=== PATIENT | male | born 1995 | race Caucasian/White ===

== ENCOUNTER 2020-04-30 19:26 | Inpatient (IN) | payer OTHER ==
[~2020-04-30] VITALS: Ht 190.5 cm; Wt 125.6 kg
[2020-04-30 21:08] LABS: COVID AG,FIA SOURCE NASOPHARYNGEAL
[2020-04-30 21:23] LABS: ANION GAP 11 mmol/L (8-16); BASOPHILS % (AUTO) 0.5 % (0.0-2.0); CALCIUM, TOTAL 9.3 mg/dL (8.8-10.5); CARBON DIOXIDE 25 mmol/L (22-29); CHLORIDE 105 mmol/L (98-107); CREATININE 1.51 mg/dL (0.60-1.30); EOSINOPHILS % (AUTO) 0.6 % (1.0-6.0); GLOMERULAR FILTR. RATE CALC 56 mL/min (>60); GLUCOSE,RANDOM 78 mg/dL (70-110); HEMATOCRIT 47.6 % (41-53); HEMOGLOBIN 16.1 g/dL (13.5-17.5); LYMPHOCYTES # (AUTO) 2.1 K/uL (1.0-4.8); LYMPHOCYTES % (AUTO) 24.1 % (22.0-44.0); MEAN CORPUSCULAR HEMOGLOBIN 29.6 pg (26.0-34.0); MEAN CORPUSCULAR HGB CONC 33.8 G/dL (31.0-37.0); MEAN CORPUSCULAR VOLUME 88 fL (80-100); MONOCYTES # (AUTO) 0.5 K/uL (0.1-1.0); MONOCYTES % (AUTO) 5.7 % (2.0-9.0); NEUTROPHILS # (AUTO) 5.9 K/uL (1.8-7.7); NEUTROPHILS % (AUTO) 69.1 % (40.0-70.0); PLATELET COUNT (AUTO) 292 K/uL (150-450); POTASSIUM 3.8 mmol/L (3.5-5.1); RED BLOOD CELL COUNT(AUTO) 5.43 MIL/uL (4.50-5.90); RED CELL DISTRIBUTION WIDTH 13.3 % (11.5-14.5); SODIUM SERUM 141 mmol/L (136-145); UREA NITROGEN, BLOOD 25 mg/dL (7-18)
[2020-04-30 21:29] LABS: ALANINE AMINOTRANSFERASE 26 U/L (12-78); ALBUMIN 4.1 g/dL (3.4-5.0); ALKALINE PHOSPHATASE 69 U/L (46-116); ASPARTATE AMINOTRANSFERASE 15 U/L (15-37); BILIRUBIN,TOTAL 1.1 mg/dL (0.1-1.0); TOTAL PROTEIN, SERUM 8.1 g/dL (6.4-8.2)
[2020-04-30] MEDS ORDERED: ACETAMINOPHEN 325 MG TABLET PO PRN (21:30)
[2020-04-30] MEDS ORDERED: ONDANSETRON HCL 4 MG/2 ML VIAL IVP PRN (21:30)
[2020-04-30] MEDS ORDERED: SODIUM CHLORIDE 0.9% 1,000 ML IV ONE (21:45)
[2020-04-30 22:52] VITALS: BP 123/54
[2020-04-30] MEDS: HEPARIN SODIUM,PORCINE 5,000 UNITS/ML VIAL SQ SCH (23:09)
[2020-04-30] MEDS: DEXTROSE 5%-0.45% SODIUM CHL 1,000 ML IV SCH (23:10)
[2020-05-01] MEDS ORDERED: INFLUENZA VIRUS VACCINE QVS 2020-21 (6MO+)/PF 60 MCG/0.5 ML SYRINGE IM ONE (04:30)
[2020-05-01 05:01] VITALS: BP 116/69
[2020-05-01 07:42] VITALS: BP 114/60
[2020-05-01] MEDS: HEPARIN SODIUM,PORCINE 5,000 UNITS/ML VIAL SQ SCH ×3 (08:27→23:33)
[2020-05-01] MEDS: DEXTROSE 5%-0.45% SODIUM CHL 1,000 ML IV SCH ×2 (08:33→17:58)
[2020-05-01 13:50] LABS: AMPHET/METH SCREEN,URINE NEGATIVE (NEGATIVE); BARBITURATE SCREEN, URINE NEGATIVE (NEGATIVE); BENZODIAZEPINES SCREEN,URINE NEGATIVE (NEGATIVE); CANNABINOID SCREEN,URINE POSITIVE (NEGATIVE); COCAINE SCREEN,URINE NEGATIVE (NEGATIVE); METHADONE SCREEN, URINE NEGATIVE (NEGATIVE); OPIATE SCREEN,URINE NEGATIVE (NEGATIVE)
[2020-05-01 13:51] LABS: PHENCYCLIDINE SCREEN,URINE NEGATIVE (NEGATIVE)
[2020-05-01 20:48] VITALS: BP 119/58
[2020-05-02] MEDS: DEXTROSE 5%-0.45% SODIUM CHL 1,000 ML IV SCH ×2 (05:41→15:14)
[2020-05-02] MEDS: HEPARIN SODIUM,PORCINE 5,000 UNITS/ML VIAL SQ SCH ×2 (07:52→15:14)
[2020-05-02 08:37] VITALS: BP 105/46
[2020-05-02 20:30] VITALS: BP 121/64
[2020-05-03] MEDS: DEXTROSE 5%-0.45% SODIUM CHL 1,000 ML IV SCH ×3 (03:01→23:43)
[2020-05-03 04:30] VITALS: BP 111/56
[2020-05-03] MEDS: HEPARIN SODIUM,PORCINE 5,000 UNITS/ML VIAL SQ SCH ×4 (07:46→23:43)
[2020-05-03 08:13] VITALS: BP 104/57
[2020-05-03 11:05] LABS: BASOPHILS % (AUTO) 0.9 % (0.0-2.0); EOSINOPHILS % (AUTO) 1.1 % (1.0-6.0); HEMATOCRIT 41.2 % (41-53); HEMOGLOBIN 14.1 g/dL (13.5-17.5); LYMPHOCYTES # (AUTO) 1.7 K/uL (1.0-4.8); LYMPHOCYTES % (AUTO) 33.5 % (22.0-44.0); MEAN CORPUSCULAR HEMOGLOBIN 29.7 pg (26.0-34.0); MEAN CORPUSCULAR HGB CONC 34.2 G/dL (31.0-37.0); MEAN CORPUSCULAR VOLUME 87 fL (80-100); MONOCYTES # (AUTO) 0.4 K/uL (0.1-1.0); MONOCYTES % (AUTO) 7.7 % (2.0-9.0); NEUTROPHILS # (AUTO) 2.9 K/uL (1.8-7.7); NEUTROPHILS % (AUTO) 56.8 % (40.0-70.0); PLATELET COUNT (AUTO) 227 K/uL (150-450); RED BLOOD CELL COUNT(AUTO) 4.73 MIL/uL (4.50-5.90)
[2020-05-03 11:14] LABS: ANION GAP 6 mmol/L (8-16); CALCIUM, TOTAL 8.4 mg/dL (8.8-10.5); CARBON DIOXIDE 30 mmol/L (22-29); CHLORIDE 104 mmol/L (98-107); CREATININE 1.35 mg/dL (0.60-1.30); GLOMERULAR FILTR. RATE CALC > 60 mL/min (>60); GLUCOSE,RANDOM 89 mg/dL (70-110); POTASSIUM 3.7 mmol/L (3.5-5.1); SODIUM SERUM 140 mmol/L (136-145); UREA NITROGEN, BLOOD 11 mg/dL (7-18)
[2020-05-03 11:19] LABS: ALANINE AMINOTRANSFERASE 25 U/L (12-78); ALBUMIN 3.4 g/dL (3.4-5.0); ALKALINE PHOSPHATASE 56 U/L (46-116); ASPARTATE AMINOTRANSFERASE 17 U/L (15-37); TOTAL PROTEIN, SERUM 6.8 g/dL (6.4-8.2)
[2020-05-03 21:30] VITALS: BP 106/51
[2020-05-04 03:45] VITALS: BP 105/55
[2020-05-04 06:44] LABS: BASOPHILS % (AUTO) 0.7 % (0.0-2.0); EOSINOPHILS % (AUTO) 1.5 % (1.0-6.0); HEMATOCRIT 39.9 % (41-53); HEMOGLOBIN 13.8 g/dL (13.5-17.5); LYMPHOCYTES # (AUTO) 2.5 K/uL (1.0-4.8); LYMPHOCYTES % (AUTO) 37.8 % (22.0-44.0); MEAN CORPUSCULAR HEMOGLOBIN 29.8 pg (26.0-34.0); MEAN CORPUSCULAR HGB CONC 34.5 G/dL (31.0-37.0); MEAN CORPUSCULAR VOLUME 87 fL (80-100); MONOCYTES # (AUTO) 0.6 K/uL (0.1-1.0); MONOCYTES % (AUTO) 8.8 % (2.0-9.0); NEUTROPHILS # (AUTO) 3.4 K/uL (1.8-7.7); NEUTROPHILS % (AUTO) 51.2 % (40.0-70.0); PLATELET COUNT (AUTO) 230 K/uL (150-450); RED BLOOD CELL COUNT(AUTO) 4.61 MIL/uL (4.50-5.90); RED CELL DISTRIBUTION WIDTH 13.2 % (11.5-14.5)
[2020-05-04 07:18] LABS: ALANINE AMINOTRANSFERASE 31 U/L (12-78); ALBUMIN 3.3 g/dL (3.4-5.0); ALKALINE PHOSPHATASE 55 U/L (46-116); ANION GAP 7 mmol/L (8-16); ASPARTATE AMINOTRANSFERASE 17 U/L (15-37); BILIRUBIN,TOTAL 0.3 mg/dL (0.1-1.0); CALCIUM, TOTAL 8.9 mg/dL (8.8-10.5); CARBON DIOXIDE 26 mmol/L (22-29); CHLORIDE 106 mmol/L (98-107); CREATININE 1.21 mg/dL (0.60-1.30); GLOMERULAR FILTR. RATE CALC > 60 mL/min (>60); GLUCOSE,RANDOM 88 mg/dL (70-110); PHOSPHORUS 4.3 mg/dL (2.5-4.9); POTASSIUM 3.2 mmol/L (3.5-5.1); SODIUM SERUM 139 mmol/L (136-145); TOTAL PROTEIN, SERUM 6.4 g/dL (6.4-8.2); UREA NITROGEN, BLOOD 15 mg/dL (7-18)
[2020-05-04] MEDS: HEPARIN SODIUM,PORCINE 5,000 UNITS/ML VIAL SQ SCH ×3 (08:25→23:21)
[2020-05-04] MEDS: THIAMINE 100 MG TABLET PO SCH (08:25)
[2020-05-04] MEDS: MULTIVITAMINS WITH MINERALS, THERAPEUTIC TABLET PO SCH (08:25)
[2020-05-04 09:09] VITALS: BP 115/55
[2020-05-04] MEDS: DEXTROSE 5%-0.45% SODIUM CHL 1,000 ML IV SCH (14:08)
[2020-05-04 21:12] VITALS: BP 118/56
[2020-05-05] MEDS: DEXTROSE 5%-0.45% SODIUM CHL 1,000 ML IV SCH ×2 (03:54→15:33)
[2020-05-05 05:20] VITALS: BP 100/63
[2020-05-05 06:20] LABS: BASOPHILS % (AUTO) 0.5 % (0.0-2.0); EOSINOPHILS % (AUTO) 1.5 % (1.0-6.0); HEMATOCRIT 41.1 % (41-53); HEMOGLOBIN 13.8 g/dL (13.5-17.5); LYMPHOCYTES % (AUTO) 41.9 % (22.0-44.0); MEAN CORPUSCULAR HEMOGLOBIN 29.5 pg (26.0-34.0); MEAN CORPUSCULAR HGB CONC 33.5 G/dL (31.0-37.0); MEAN CORPUSCULAR VOLUME 88 fL (80-100); MONOCYTES # (AUTO) 0.6 K/uL (0.1-1.0); MONOCYTES % (AUTO) 7.9 % (2.0-9.0); NEUTROPHILS # (AUTO) 3.5 K/uL (1.8-7.7); NEUTROPHILS % (AUTO) 48.2 % (40.0-70.0); PLATELET COUNT (AUTO) 224 K/uL (150-450); RED BLOOD CELL COUNT(AUTO) 4.67 MIL/uL (4.50-5.90); RED CELL DISTRIBUTION WIDTH 13.1 % (11.5-14.5)
[2020-05-05 07:29] LABS: ALANINE AMINOTRANSFERASE 32 U/L (12-78); ALBUMIN 3.3 g/dL (3.4-5.0); ALKALINE PHOSPHATASE 51 U/L (46-116); ANION GAP 7 mmol/L (8-16); ASPARTATE AMINOTRANSFERASE 19 U/L (15-37); BILIRUBIN,TOTAL 0.4 mg/dL (0.1-1.0); CALCIUM, TOTAL 8.7 mg/dL (8.8-10.5); CARBON DIOXIDE 28 mmol/L (22-29); CHLORIDE 106 mmol/L (98-107); CREATININE 1.27 mg/dL (0.60-1.30); GLOMERULAR FILTR. RATE CALC > 60 mL/min (>60); GLUCOSE,RANDOM 90 mg/dL (70-110); PHOSPHORUS 3.7 mg/dL (2.5-4.9); POTASSIUM 3.8 mmol/L (3.5-5.1); SODIUM SERUM 141 mmol/L (136-145); TOTAL PROTEIN, SERUM 6.4 g/dL (6.4-8.2); UREA NITROGEN, BLOOD 11 mg/dL (7-18)
[2020-05-05 08:35] VITALS: BP 107/57
[2020-05-05] MEDS: THIAMINE 100 MG TABLET PO SCH (08:43)
[2020-05-05] MEDS: HEPARIN SODIUM,PORCINE 5,000 UNITS/ML VIAL SQ SCH ×2 (08:43→15:33)
[2020-05-05] MEDS: MULTIVITAMINS WITH MINERALS, THERAPEUTIC TABLET PO SCH (08:43)
[2020-05-05 20:43] VITALS: BP 110/65
[2020-05-06] MEDS: HEPARIN SODIUM,PORCINE 5,000 UNITS/ML VIAL SQ SCH ×4 (00:34→23:54)
[2020-05-06] MEDS: DEXTROSE 5%-0.45% SODIUM CHL 1,000 ML IV SCH ×2 (03:03→19:44)
[2020-05-06 04:25] VITALS: BP 119/56
[2020-05-06 06:47] LABS: BASOPHILS % (AUTO) 0.6 % (0.0-2.0); EOSINOPHILS % (AUTO) 1.9 % (1.0-6.0); LYMPHOCYTES # (AUTO) 3.2 K/uL (1.0-4.8); LYMPHOCYTES % (AUTO) 43.6 % (22.0-44.0); MEAN CORPUSCULAR HGB CONC 34.2 G/dL (31.0-37.0); MEAN CORPUSCULAR VOLUME 88 fL (80-100); MONOCYTES # (AUTO) 0.5 K/uL (0.1-1.0); MONOCYTES % (AUTO) 7.1 % (2.0-9.0); NEUTROPHILS # (AUTO) 3.4 K/uL (1.8-7.7); NEUTROPHILS % (AUTO) 46.8 % (40.0-70.0); PLATELET COUNT (AUTO) 228 K/uL (150-450); RED BLOOD CELL COUNT(AUTO) 4.68 MIL/uL (4.50-5.90); RED CELL DISTRIBUTION WIDTH 13.3 % (11.5-14.5)
[2020-05-06 07:24] LABS: ALANINE AMINOTRANSFERASE 40 U/L (12-78); ALBUMIN 3.3 g/dL (3.4-5.0); ALKALINE PHOSPHATASE 56 U/L (46-116); ANION GAP 5 mmol/L (8-16); ASPARTATE AMINOTRANSFERASE 18 U/L (15-37); BILIRUBIN,TOTAL 0.3 mg/dL (0.1-1.0); CALCIUM, TOTAL 8.6 mg/dL (8.8-10.5); CARBON DIOXIDE 29 mmol/L (22-29); CHLORIDE 105 mmol/L (98-107); CREATININE 1.28 mg/dL (0.60-1.30); GLOMERULAR FILTR. RATE CALC > 60 mL/min (>60); GLUCOSE,RANDOM 85 mg/dL (70-110); POTASSIUM 3.7 mmol/L (3.5-5.1); SODIUM SERUM 139 mmol/L (136-145); TOTAL PROTEIN, SERUM 6.7 g/dL (6.4-8.2); UREA NITROGEN, BLOOD 11 mg/dL (7-18)
[2020-05-06 08:51] VITALS: BP 130/52
[2020-05-06] MEDS: THIAMINE 100 MG TABLET PO SCH (09:27)
[2020-05-06] MEDS: MULTIVITAMINS WITH MINERALS, THERAPEUTIC TABLET PO SCH (09:27)
[2020-05-06 20:48] VITALS: BP 121/50
[2020-05-06] MEDS ORDERED: ZOLPIDEM TARTRATE 5 MG TABLET PO ONE (23:30)
[2020-05-07 04:33] VITALS: BP 103/51
[2020-05-07 06:58] LABS: BASOPHILS % (AUTO) 0.5 % (0.0-2.0); EOSINOPHILS % (AUTO) 1.8 % (1.0-6.0); HEMATOCRIT 41.4 % (41-53); HEMOGLOBIN 14.2 g/dL (13.5-17.5); LYMPHOCYTES # (AUTO) 2.7 K/uL (1.0-4.8); LYMPHOCYTES % (AUTO) 37.5 % (22.0-44.0); MEAN CORPUSCULAR HEMOGLOBIN 30.1 pg (26.0-34.0); MEAN CORPUSCULAR HGB CONC 34.2 G/dL (31.0-37.0); MEAN CORPUSCULAR VOLUME 88 fL (80-100); MONOCYTES # (AUTO) 0.6 K/uL (0.1-1.0); MONOCYTES % (AUTO) 7.7 % (2.0-9.0); NEUTROPHILS # (AUTO) 3.8 K/uL (1.8-7.7); NEUTROPHILS % (AUTO) 52.5 % (40.0-70.0); PLATELET COUNT (AUTO) 234 K/uL (150-450)
[2020-05-07 07:13] LABS: ALANINE AMINOTRANSFERASE 45 U/L (12-78); ALBUMIN 3.5 g/dL (3.4-5.0); ALKALINE PHOSPHATASE 58 U/L (46-116); ANION GAP 7 mmol/L (8-16); ASPARTATE AMINOTRANSFERASE 18 U/L (15-37); BILIRUBIN,TOTAL 0.3 mg/dL (0.1-1.0); CALCIUM, TOTAL 9.1 mg/dL (8.8-10.5); CARBON DIOXIDE 28 mmol/L (22-29); CHLORIDE 106 mmol/L (98-107); CREATININE 1.23 mg/dL (0.60-1.30); GLOMERULAR FILTR. RATE CALC > 60 mL/min (>60); GLUCOSE,RANDOM 96 mg/dL (70-110); POTASSIUM 4.1 mmol/L (3.5-5.1); SODIUM SERUM 141 mmol/L (136-145); TOTAL PROTEIN, SERUM 6.7 g/dL (6.4-8.2); UREA NITROGEN, BLOOD 12 mg/dL (7-18)
[2020-05-07] MEDS: HEPARIN SODIUM,PORCINE 5,000 UNITS/ML VIAL SQ SCH ×2 (08:00→17:27)
[2020-05-07] MEDS: DEXTROSE 5%-0.45% SODIUM CHL 1,000 ML IV SCH (08:03)
[2020-05-07 08:56] VITALS: BP 118/70
[2020-05-07] MEDS: MULTIVITAMINS WITH MINERALS, THERAPEUTIC TABLET PO SCH (08:58)
[2020-05-07] MEDS: THIAMINE 100 MG TABLET PO SCH (08:58)
[2020-05-07 21:18] VITALS: BP 117/53
[2020-05-08] MEDS: DEXTROSE 5%-0.45% SODIUM CHL 1,000 ML IV SCH ×2 (01:18→08:15)
[2020-05-08] MEDS: HEPARIN SODIUM,PORCINE 5,000 UNITS/ML VIAL SQ SCH ×4 (01:18→23:10)
[2020-05-08 04:40] VITALS: BP 112/51
[2020-05-08 07:06] LABS: BASOPHILS % (AUTO) 0.4 % (0.0-2.0); EOSINOPHILS % (AUTO) 2.7 % (1.0-6.0); HEMATOCRIT 41.6 % (41-53); HEMOGLOBIN 14.4 g/dL (13.5-17.5); LYMPHOCYTES % (AUTO) 38.6 % (22.0-44.0); MEAN CORPUSCULAR HEMOGLOBIN 30.3 pg (26.0-34.0); MEAN CORPUSCULAR HGB CONC 34.6 G/dL (31.0-37.0); MEAN CORPUSCULAR VOLUME 88 fL (80-100); MONOCYTES # (AUTO) 0.5 K/uL (0.1-1.0); NEUTROPHILS # (AUTO) 3.9 K/uL (1.8-7.7); NEUTROPHILS % (AUTO) 51.3 % (40.0-70.0); PLATELET COUNT (AUTO) 226 K/uL (150-450); RED BLOOD CELL COUNT(AUTO) 4.75 MIL/uL (4.50-5.90); RED CELL DISTRIBUTION WIDTH 13.1 % (11.5-14.5)
[2020-05-08 07:35] LABS: ALANINE AMINOTRANSFERASE 54 U/L (12-78); ALBUMIN 3.4 g/dL (3.4-5.0); ALKALINE PHOSPHATASE 57 U/L (46-116); ANION GAP 7 mmol/L (8-16); ASPARTATE AMINOTRANSFERASE 23 U/L (15-37); BILIRUBIN,TOTAL 0.4 mg/dL (0.1-1.0); CALCIUM, TOTAL 8.8 mg/dL (8.8-10.5); CARBON DIOXIDE 29 mmol/L (22-29); CHLORIDE 105 mmol/L (98-107); CREATININE 1.26 mg/dL (0.60-1.30); GLOMERULAR FILTR. RATE CALC > 60 mL/min (>60); GLUCOSE,RANDOM 85 mg/dL (70-110); SODIUM SERUM 141 mmol/L (136-145); TOTAL PROTEIN, SERUM 6.8 g/dL (6.4-8.2); UREA NITROGEN, BLOOD 14 mg/dL (7-18)
[2020-05-08] MEDS: MULTIVITAMINS WITH MINERALS, THERAPEUTIC TABLET PO SCH ×2 (08:14→08:20)
[2020-05-08] MEDS: THIAMINE 100 MG TABLET PO SCH ×2 (08:14→08:20)
[2020-05-08 08:30] VITALS: BP 98/47
[2020-05-08 09:51] VITALS: BP 118/67
[2020-05-08 20:26] VITALS: BP 132/70
[2020-05-09 05:11] VITALS: BP 128/67
[2020-05-09 06:49] LABS: BASOPHILS % (AUTO) 0.7 % (0.0-2.0); EOSINOPHILS % (AUTO) 2.4 % (1.0-6.0); HEMATOCRIT 41.4 % (41-53); HEMOGLOBIN 14.6 g/dL (13.5-17.5); LYMPHOCYTES # (AUTO) 3.2 K/uL (1.0-4.8); LYMPHOCYTES % (AUTO) 37.9 % (22.0-44.0); MEAN CORPUSCULAR HEMOGLOBIN 30.5 pg (26.0-34.0); MEAN CORPUSCULAR HGB CONC 35.3 G/dL (31.0-37.0); MEAN CORPUSCULAR VOLUME 87 fL (80-100); MONOCYTES # (AUTO) 0.7 K/uL (0.1-1.0); MONOCYTES % (AUTO) 8.2 % (2.0-9.0); NEUTROPHILS # (AUTO) 4.3 K/uL (1.8-7.7); NEUTROPHILS % (AUTO) 50.8 % (40.0-70.0); PLATELET COUNT (AUTO) 227 K/uL (150-450); RED BLOOD CELL COUNT(AUTO) 4.79 MIL/uL (4.50-5.90)
[2020-05-09 07:23] LABS: ALANINE AMINOTRANSFERASE 72 U/L (12-78); ALBUMIN 3.6 g/dL (3.4-5.0); ALKALINE PHOSPHATASE 61 U/L (46-116); ANION GAP 5 mmol/L (8-16); ASPARTATE AMINOTRANSFERASE 26 U/L (15-37); BILIRUBIN,TOTAL 0.4 mg/dL (0.1-1.0); CALCIUM, TOTAL 9.4 mg/dL (8.8-10.5); CARBON DIOXIDE 31 mmol/L (22-29); CHLORIDE 104 mmol/L (98-107); CREATININE 1.39 mg/dL (0.60-1.30); GLOMERULAR FILTR. RATE CALC > 60 mL/min (>60); GLUCOSE,RANDOM 90 mg/dL (70-110); POTASSIUM 4.5 mmol/L (3.5-5.1); SODIUM SERUM 140 mmol/L (136-145); TOTAL PROTEIN, SERUM 7.2 g/dL (6.4-8.2); UREA NITROGEN, BLOOD 13 mg/dL (7-18)
[2020-05-09] MEDS: HEPARIN SODIUM,PORCINE 5,000 UNITS/ML VIAL SQ SCH ×2 (07:57→17:19)
[2020-05-09] MEDS: MULTIVITAMINS WITH MINERALS, THERAPEUTIC TABLET PO SCH (07:58)
[2020-05-09] MEDS: THIAMINE 100 MG TABLET PO SCH (07:58)
[2020-05-09 09:00] VITALS: BP 103/59
[2020-05-09 20:00] VITALS: BP 109/64
[2020-05-10] MEDS: HEPARIN SODIUM,PORCINE 5,000 UNITS/ML VIAL SQ SCH ×4 (00:01→23:29)
[2020-05-10 04:15] VITALS: BP 98/72
[2020-05-10 06:50] LABS: BASOPHILS % (AUTO) 0.8 % (0.0-2.0); EOSINOPHILS % (AUTO) 1.7 % (1.0-6.0); HEMATOCRIT 43.1 % (41-53); LYMPHOCYTES # (AUTO) 3.4 K/uL (1.0-4.8); LYMPHOCYTES % (AUTO) 40.4 % (22.0-44.0); MEAN CORPUSCULAR HEMOGLOBIN 30.4 pg (26.0-34.0); MEAN CORPUSCULAR HGB CONC 34.8 G/dL (31.0-37.0); MEAN CORPUSCULAR VOLUME 87 fL (80-100); MONOCYTES # (AUTO) 0.6 K/uL (0.1-1.0); MONOCYTES % (AUTO) 7.7 % (2.0-9.0); NEUTROPHILS # (AUTO) 4.1 K/uL (1.8-7.7); NEUTROPHILS % (AUTO) 49.4 % (40.0-70.0); PLATELET COUNT (AUTO) 239 K/uL (150-450); RED BLOOD CELL COUNT(AUTO) 4.93 MIL/uL (4.50-5.90); RED CELL DISTRIBUTION WIDTH 13.2 % (11.5-14.5)
[2020-05-10 07:31] LABS: ALANINE AMINOTRANSFERASE 70 U/L (12-78); ALBUMIN 3.7 g/dL (3.4-5.0); ALKALINE PHOSPHATASE 63 U/L (46-116); ANION GAP 6 mmol/L (8-16); ASPARTATE AMINOTRANSFERASE 22 U/L (15-37); BILIRUBIN,TOTAL 0.3 mg/dL (0.1-1.0); CALCIUM, TOTAL 9.2 mg/dL (8.8-10.5); CARBON DIOXIDE 29 mmol/L (22-29); CHLORIDE 103 mmol/L (98-107); CREATININE 1.31 mg/dL (0.60-1.30); GLOMERULAR FILTR. RATE CALC > 60 mL/min (>60); GLUCOSE,RANDOM 91 mg/dL (70-110); POTASSIUM 3.9 mmol/L (3.5-5.1); SODIUM SERUM 138 mmol/L (136-145); TOTAL PROTEIN, SERUM 7.2 g/dL (6.4-8.2); UREA NITROGEN, BLOOD 15 mg/dL (7-18)
[2020-05-10 08:07] VITALS: BP 103/66
[2020-05-10] MEDS: MULTIVITAMINS WITH MINERALS, THERAPEUTIC TABLET PO SCH (08:48)
[2020-05-10] MEDS: THIAMINE 100 MG TABLET PO SCH (08:48)
[2020-05-10 20:05] VITALS: BP 115/58
[2020-05-11 03:55] VITALS: BP 108/62
[2020-05-11 08:29] VITALS: BP 94/64
[2020-05-11] MEDS: MULTIVITAMINS WITH MINERALS, THERAPEUTIC TABLET PO SCH ×2 (08:34→09:00)
[2020-05-11] MEDS: THIAMINE 100 MG TABLET PO SCH ×2 (08:34→09:00)
[2020-05-11] MEDS: HEPARIN SODIUM,PORCINE 5,000 UNITS/ML VIAL SQ SCH ×2 (08:34→17:26)
[2020-05-11 20:31] VITALS: BP 104/61
[2020-05-12] MEDS: HEPARIN SODIUM,PORCINE 5,000 UNITS/ML VIAL SQ SCH ×3 (00:26→16:36)
[2020-05-12 05:00] VITALS: BP 119/57
[2020-05-12 07:44] VITALS: BP 113/59
[2020-05-12] MEDS: MULTIVITAMINS WITH MINERALS, THERAPEUTIC TABLET PO SCH (08:10)
[2020-05-12] MEDS: THIAMINE 100 MG TABLET PO SCH (08:10)
[2020-05-12 20:50] VITALS: BP 106/63
[2020-05-13] MEDS: HEPARIN SODIUM,PORCINE 5,000 UNITS/ML VIAL SQ SCH ×3 (00:19→16:24)
[2020-05-13 05:15] VITALS: BP 117/58
[2020-05-13 08:28] VITALS: BP 125/61
[2020-05-13] MEDS: THIAMINE 100 MG TABLET PO SCH (16:23)
[2020-05-13] MEDS: MULTIVITAMINS WITH MINERALS, THERAPEUTIC TABLET PO SCH (16:23)
[2020-05-13 20:29] VITALS: BP 109/59
[2020-05-14 04:36] VITALS: BP 121/57
[2020-05-14 07:23] VITALS: BP 100/57
[2020-05-14] MEDS: HEPARIN SODIUM,PORCINE 5,000 UNITS/ML VIAL SQ SCH ×4 (08:06→23:15)
[2020-05-14] MEDS: MULTIVITAMINS WITH MINERALS, THERAPEUTIC TABLET PO SCH (08:06)
[2020-05-14] MEDS: THIAMINE 100 MG TABLET PO SCH (08:06)
[2020-05-14 20:31] VITALS: BP 116/64
[2020-05-15 07:44] VITALS: BP 120/69
[2020-05-15] MEDS: HEPARIN SODIUM,PORCINE 5,000 UNITS/ML VIAL SQ SCH ×2 (07:54→17:06)
[2020-05-15] MEDS: THIAMINE 100 MG TABLET PO SCH (09:00)
[2020-05-15] MEDS: MULTIVITAMINS WITH MINERALS, THERAPEUTIC TABLET PO SCH (09:00)
[2020-05-15 20:08] VITALS: BP 118/62
[2020-05-16] MEDS: HEPARIN SODIUM,PORCINE 5,000 UNITS/ML VIAL SQ SCH ×4 (00:25→23:10)
[2020-05-16 05:00] VITALS: BP 120/76
[2020-05-16 08:00] VITALS: BP 121/57
[2020-05-16] MEDS: MULTIVITAMINS WITH MINERALS, THERAPEUTIC TABLET PO SCH (08:20)
[2020-05-16] MEDS: THIAMINE 100 MG TABLET PO SCH (08:20)
[2020-05-16 20:00] VITALS: BP 124/64
[2020-05-17 04:11] VITALS: BP 117/63
[2020-05-17] MEDS: HEPARIN SODIUM,PORCINE 5,000 UNITS/ML VIAL SQ SCH ×3 (07:59→23:26)
[2020-05-17] MEDS: THIAMINE 100 MG TABLET PO SCH (08:02)
[2020-05-17] MEDS: MULTIVITAMINS WITH MINERALS, THERAPEUTIC TABLET PO SCH (08:02)
[2020-05-17 09:03] VITALS: BP 108/62
[2020-05-17 20:10] VITALS: BP 105/56
[2020-05-18 04:19] VITALS: BP 104/57
[2020-05-18 07:33] LABS: CALCIUM, TOTAL 8.9 mg/dL (8.8-10.5); CREATININE 1.57 mg/dL (0.60-1.30); POTASSIUM 3.5 mmol/L (3.5-5.1)
[2020-05-18 07:52] VITALS: BP 111/63
[2020-05-18] MEDS: MULTIVITAMINS WITH MINERALS, THERAPEUTIC TABLET PO SCH (07:57)
[2020-05-18] MEDS: HEPARIN SODIUM,PORCINE 5,000 UNITS/ML VIAL SQ SCH ×3 (07:57→23:08)
[2020-05-18] MEDS: THIAMINE 100 MG TABLET PO SCH (07:57)
[2020-05-18 20:21] VITALS: BP 128/62
[2020-05-19 05:00] VITALS: BP 111/55
[2020-05-19] MEDS: HEPARIN SODIUM,PORCINE 5,000 UNITS/ML VIAL SQ SCH ×3 (08:00→23:28)
[2020-05-19] MEDS: MULTIVITAMINS WITH MINERALS, THERAPEUTIC TABLET PO SCH (08:31)
[2020-05-19] MEDS: THIAMINE 100 MG TABLET PO SCH (08:31)
[2020-05-19 08:45] VITALS: BP 114/57
[2020-05-19] MEDS ORDERED: SODIUM CHLORIDE 0.9% 1,000 ML IV ONE (13:00)
[2020-05-19 20:30] VITALS: BP 119/76
[2020-05-20 05:10] VITALS: BP 123/59
[2020-05-20 07:33] VITALS: BP 101/57
[2020-05-20] MEDS: THIAMINE 100 MG TABLET PO SCH (09:00)
[2020-05-20] MEDS: MULTIVITAMINS WITH MINERALS, THERAPEUTIC TABLET PO SCH (09:00)
[2020-05-20] MEDS: HEPARIN SODIUM,PORCINE 5,000 UNITS/ML VIAL SQ SCH ×2 (09:55→16:53)
[2020-05-20] MEDS ORDERED: DEXTROSE 5%-0.2% SODIUM CHL 1,000 ML IV ONE (10:30)
[2020-05-20 21:23] VITALS: BP 116/61
[2020-05-21] MEDS: HEPARIN SODIUM,PORCINE 5,000 UNITS/ML VIAL SQ SCH ×3 (00:06→15:21)
[2020-05-21 05:05] VITALS: BP 122/66
[2020-05-21 07:26] VITALS: BP 99/52
[2020-05-21] MEDS: MULTIVITAMINS WITH MINERALS, THERAPEUTIC TABLET PO SCH (08:17)
[2020-05-21] MEDS: THIAMINE 100 MG TABLET PO SCH (08:17)
[2020-05-21 20:10] VITALS: BP 123/60
== END 2020-05-21 23:45 | disposition home or self-care (01) | DRG 885 ==
LOC: EMS 19:26 → 6S 21:03
PROVIDERS: ADMIT Internal Medicine; ATTEND Internal Medicine
DX: F33.3 Major depressive disorder, recurrent, severe with psychotic symptoms (principal); R45.851 Suicidal ideations; N17.9 Acute kidney failure, unspecified; E87.1 Hypo-osmolality and hyponatremia; E46 Unspecified protein-calorie malnutrition; E86.0 Dehydration; F41.9 Anxiety disorder, unspecified; E87.6 Hypokalemia; F12.90 Cannabis use, unspecified, uncomplicated; F15.10 Other stimulant abuse, uncomplicated; Z20.822 Contact with and (suspected) exposure to COVID-19; Z68.34 Body mass index [BMI] 34.0-34.9, adult; Z28.21 Immunization not carried out because of patient refusal
CPT/HCPCS: 83735; 84100; 87426; 99285; G0480; J1644; J7030

== ENCOUNTER 2020-05-23 21:31 | Inpatient (IN) | payer OTHER ==
[~2020-05-23] VITALS: Ht 190.5 cm; Wt 131.5 kg
[2020-05-23 22:54] LABS: BASOPHILS % (AUTO) 0.4 % (0.0-2.0); EOSINOPHILS % (AUTO) 1.3 % (1.0-6.0); HEMATOCRIT 43.9 % (41-53); HEMOGLOBIN 14.9 g/dL (13.5-17.5); LYMPHOCYTES # (AUTO) 1.8 K/uL (1.0-4.8); LYMPHOCYTES % (AUTO) 25.6 % (22.0-44.0); MEAN CORPUSCULAR HEMOGLOBIN 29.7 pg (26.0-34.0); MEAN CORPUSCULAR VOLUME 87 fL (80-100); MONOCYTES # (AUTO) 0.4 K/uL (0.1-1.0); MONOCYTES % (AUTO) 5.8 % (2.0-9.0); NEUTROPHILS # (AUTO) 4.7 K/uL (1.8-7.7); NEUTROPHILS % (AUTO) 66.9 % (40.0-70.0); PLATELET COUNT (AUTO) 240 K/uL (150-450); RED BLOOD CELL COUNT(AUTO) 5.04 MIL/uL (4.50-5.90); RED CELL DISTRIBUTION WIDTH 13.1 % (11.5-14.5)
[2020-05-23 23:08] LABS: ANION GAP 11 mmol/L (8-16); CALCIUM, TOTAL 9.6 mg/dL (8.8-10.5); CARBON DIOXIDE 26 mmol/L (22-29); CHLORIDE 102 mmol/L (98-107); CREATININE 1.29 mg/dL (0.60-1.30); GLOMERULAR FILTR. RATE CALC > 60 mL/min (>60); GLUCOSE,RANDOM 86 mg/dL (70-110); POTASSIUM 4.4 mmol/L (3.5-5.1); SODIUM SERUM 139 mmol/L (136-145); UREA NITROGEN, BLOOD 19 mg/dL (7-18)
[2020-05-23 23:14] LABS: ALANINE AMINOTRANSFERASE 61 U/L (12-78); ALBUMIN 4.1 g/dL (3.4-5.0); ALKALINE PHOSPHATASE 56 U/L (46-116); ASPARTATE AMINOTRANSFERASE 27 U/L (15-37); BILIRUBIN,TOTAL 0.8 mg/dL (0.1-1.0); TOTAL PROTEIN, SERUM 7.7 g/dL (6.4-8.2)
[2020-05-23] MEDS ORDERED: ONDANSETRON HCL 4 MG/2 ML VIAL IVP PRN (23:45)
[2020-05-23] MEDS ORDERED: ACETAMINOPHEN 325 MG TABLET PO PRN (23:45)
[2020-05-23 23:59] LABS: COVID AG,FIA SOURCE NASOPHARYNGEAL
[2020-05-24 00:15] VITALS: BP 125/68
[2020-05-24 03:47] VITALS: BP 114/62
[2020-05-24 04:31] LABS: AMPHET/METH SCREEN,URINE NEGATIVE (NEGATIVE); BARBITURATE SCREEN, URINE NEGATIVE (NEGATIVE); BENZODIAZEPINES SCREEN,URINE NEGATIVE (NEGATIVE); CANNABINOID SCREEN,URINE POSITIVE (NEGATIVE); COCAINE SCREEN,URINE NEGATIVE (NEGATIVE); METHADONE SCREEN, URINE NEGATIVE (NEGATIVE); OPIATE SCREEN,URINE NEGATIVE (NEGATIVE)
[2020-05-24 04:42] LABS: PHENCYCLIDINE SCREEN,URINE NEGATIVE (NEGATIVE)
[2020-05-24] MEDS ORDERED: MAGNESIUM HYDROXIDE SUSPENSION 30 ML UDCUP PO PRN (07:45)
[2020-05-24 08:05] VITALS: BP 118/52
[2020-05-24] MEDS: FAMOTIDINE 20 MG TABLET PO SCH (08:38)
[2020-05-24 19:35] VITALS: BP 125/65
[2020-05-24] MEDS: MELATONIN 3 MG TABLET PO PRN (21:03)
[2020-05-25 05:40] VITALS: BP 113/55
[2020-05-25 07:25] VITALS: BP 125/75
[2020-05-25] MEDS: FAMOTIDINE 20 MG TABLET PO SCH (08:24)
[2020-05-25 19:20] VITALS: BP 133/54
[2020-05-26 03:30] VITALS: BP 134/85
[2020-05-26] MEDS: FAMOTIDINE 20 MG TABLET PO SCH (08:00)
[2020-05-26 08:01] VITALS: BP 133/72
[2020-05-26] MEDS: FLUoxetine HCL 20 MG CAPSULE PO SCH ×2 (11:30→13:16)
[2020-05-26 16:00] VITALS: BP 130/80
[2020-05-27 04:45] VITALS: BP 126/76
[2020-05-27 08:19] VITALS: BP 124/68
[2020-05-27] MEDS: FAMOTIDINE 20 MG TABLET PO SCH (08:39)
[2020-05-27] MEDS: FLUoxetine HCL 20 MG CAPSULE PO SCH (08:40)
[2020-05-27] MEDS: LORazepam 2 MG TABLET PO PRN (11:13)
[2020-05-27] MEDS ORDERED: LORazepam 2 MG/ML VIAL IM ONE (11:15)
[2020-05-27] MEDS ORDERED: HALOPERIDOL LACTATE 5 MG/ML VIAL IM ONE (11:15)
[2020-05-27 19:30] VITALS: BP 108/62
[2020-05-28 01:00] VITALS: BP 115/62
[2020-05-28 04:04] VITALS: BP 122/69
[2020-05-28 07:49] VITALS: BP 148/90
[2020-05-28] MEDS: FAMOTIDINE 20 MG TABLET PO SCH (08:20)
[2020-05-28] MEDS: BACITRACIN 28 GM OINTMENT TP SCH (08:20)
[2020-05-28] MEDS: FLUoxetine HCL 20 MG CAPSULE PO SCH (08:20)
[2020-05-28] MEDS ORDERED: HALOPERIDOL LACTATE 5 MG/ML VIAL ONE (11:56)
[2020-05-28] MEDS ORDERED: DiphenhydrAMINE HCL 50 MG/ML VIAL ONE (11:57)
[2020-05-28] MEDS ORDERED: LORazepam 2 MG/ML VIAL ONE (11:57)
[2020-05-28] MEDS ORDERED: LORazepam 2 MG/ML VIAL IM ONE (12:00)
[2020-05-28] MEDS ORDERED: DiphenhydrAMINE HCL 50 MG/ML VIAL IM ONE (12:00)
[2020-05-28] MEDS ORDERED: HALOPERIDOL LACTATE 5 MG/ML VIAL IM ONE (12:00)
[2020-05-28] MEDS: LORazepam 2 MG TABLET PO PRN (16:46)
[2020-05-28 19:28] VITALS: BP 125/53
[2020-05-29] MEDS: LORazepam 2 MG TABLET PO PRN ×2 (03:29→12:41)
[2020-05-29 05:56] VITALS: BP 115/67
[2020-05-29] MEDS: FAMOTIDINE 20 MG TABLET PO SCH (09:33)
[2020-05-29] MEDS: FLUoxetine HCL 20 MG CAPSULE PO SCH (09:33)
[2020-05-29 16:06] VITALS: BP 136/74
[2020-05-29 19:45] VITALS: BP 107/57
[2020-05-30] MEDS: LORazepam 2 MG TABLET PO PRN (01:11)
[2020-05-30 05:12] VITALS: BP 123/60
[2020-05-30 07:50] VITALS: BP 124/81
[2020-05-30] MEDS: FLUoxetine HCL 20 MG CAPSULE PO SCH (08:24)
[2020-05-30] MEDS: FAMOTIDINE 20 MG TABLET PO SCH (08:24)
[2020-05-30 19:20] VITALS: BP 107/60
[2020-05-31 05:15] VITALS: BP 125/77
[2020-05-31 08:14] VITALS: BP 121/66
[2020-05-31] MEDS: FLUoxetine HCL 20 MG CAPSULE PO SCH (08:20)
[2020-05-31] MEDS: FAMOTIDINE 20 MG TABLET PO SCH (08:20)
[2020-05-31] MEDS: BACITRACIN 28 GM OINTMENT TP SCH (11:36)
[2020-05-31 21:44] VITALS: BP 104/58
[2020-06-01 03:24] VITALS: BP 116/61
[2020-06-01 07:25] VITALS: BP 113/64
[2020-06-01] MEDS: FAMOTIDINE 20 MG TABLET PO SCH (08:54)
[2020-06-01] MEDS: FLUoxetine HCL 20 MG CAPSULE PO SCH (08:56)
[2020-06-01 20:10] VITALS: BP 117/55
[2020-06-02 04:00] VITALS: BP 120/60
[2020-06-02 08:04] VITALS: BP 136/67
[2020-06-02] MEDS: FAMOTIDINE 20 MG TABLET PO SCH (08:19)
[2020-06-02] MEDS: FLUoxetine HCL 20 MG CAPSULE PO SCH (08:19)
[2020-06-02 16:16] VITALS: BP 113/65
[2020-06-02 19:22] VITALS: BP 114/58
[2020-06-03 05:41] VITALS: BP 129/72
[2020-06-03 07:34] VITALS: BP 112/68
[2020-06-03] MEDS: FLUoxetine HCL 20 MG CAPSULE PO SCH (09:00)
[2020-06-03] MEDS: FAMOTIDINE 20 MG TABLET PO SCH (09:00)
[2020-06-03] MEDS: BACITRACIN 28 GM OINTMENT TP SCH (10:12)
[2020-06-03] MEDS ORDERED: HALOPERIDOL LACTATE 5 MG/ML VIAL IM ONE (10:30)
[2020-06-03] MEDS ORDERED: LORazepam 2 MG/ML VIAL IM ONE (10:30)
[2020-06-03 21:54] VITALS: BP 107/56
[2020-06-04 05:43] VITALS: BP 109/72
[2020-06-04] MEDS: FAMOTIDINE 20 MG TABLET PO SCH (07:51)
[2020-06-04] MEDS: FLUoxetine HCL 20 MG CAPSULE PO SCH (07:52)
[2020-06-04] MEDS ORDERED: FLUO-191 PO (10:42)
[2020-06-04 16:15] VITALS: BP 128/64
[2020-06-04] MEDS: LORazepam 2 MG TABLET PO PRN (17:36)
[2020-06-04 21:54] VITALS: BP 122/61
[2020-06-05] MEDS: LORazepam 2 MG TABLET PO PRN (02:48)
[2020-06-05 04:25] VITALS: BP 112/57
[2020-06-05] MEDS: FAMOTIDINE 20 MG TABLET PO SCH (09:00)
[2020-06-05] MEDS: FLUoxetine HCL 20 MG CAPSULE PO SCH (09:00)
[2020-06-05] MEDS ORDERED: HALOPERIDOL LACTATE 5 MG/ML VIAL IM ONE ×2 (13:00→13:30)
[2020-06-05] MEDS ORDERED: LORazepam 2 MG/ML VIAL IM ONE ×2 (13:00→13:30)
[2020-06-05] MEDS ORDERED: DiphenhydrAMINE HCL 50 MG/ML VIAL IM ONE (13:30)
[2020-06-05 20:48] VITALS: BP 102/55
[2020-06-05] MEDS: MELATONIN 3 MG TABLET PO PRN (20:49)
[2020-06-06 04:31] VITALS: BP 130/64
[2020-06-06] MEDS: LORazepam 2 MG TABLET PO PRN ×4 (04:44→18:12)
[2020-06-06] MEDS: ACETAMINOPHEN 325 MG TABLET PO PRN ×2 (05:19→14:14)
[2020-06-06 07:34] VITALS: BP 139/77
[2020-06-06] MEDS: FLUoxetine HCL 20 MG CAPSULE PO SCH (08:20)
[2020-06-06] MEDS: FAMOTIDINE 20 MG TABLET PO SCH (08:20)
[2020-06-06] MEDS ORDERED: HALOPERIDOL 5 MG TABLET PO SCH (09:00)
[2020-06-06] MEDS: BACITRACIN 28 GM OINTMENT TP SCH (14:08)
[2020-06-06] MEDS ORDERED: ChlorproMAZINE HCL 50 MG/2 ML AMP IM ONE (15:15)
[2020-06-06] MEDS ORDERED: LORazepam 2 MG/ML VIAL IM ONE (15:15)
[2020-06-06 21:00] VITALS: BP 107/56
[2020-06-06] MEDS: HALOPERIDOL 5 MG TABLET PO SCH (21:06)
[2020-06-07 05:00] VITALS: BP 111/83
[2020-06-07] MEDS: LORazepam 2 MG TABLET PO PRN ×3 (05:21→18:11)
[2020-06-07 09:52] VITALS: BP 121/75
[2020-06-07] MEDS: HALOPERIDOL 5 MG TABLET PO SCH ×2 (10:07→20:49)
[2020-06-07] MEDS: FAMOTIDINE 20 MG TABLET PO SCH (10:07)
[2020-06-07] MEDS: MULTIVITAMINS WITH MINERALS, THERAPEUTIC TABLET PO SCH (10:07)
[2020-06-07] MEDS: FLUoxetine HCL 20 MG CAPSULE PO SCH (10:07)
[2020-06-07 19:15] VITALS: BP 127/61
[2020-06-07] MEDS: MELATONIN 3 MG TABLET PO PRN (20:49)
[2020-06-07] MEDS: ACETAMINOPHEN 325 MG TABLET PO PRN (20:51)
[2020-06-08 04:00] VITALS: BP 119/75
[2020-06-08] MEDS: LORazepam 2 MG TABLET PO PRN ×2 (06:41→15:52)
[2020-06-08] MEDS: HALOPERIDOL 5 MG TABLET PO SCH ×2 (07:55→20:39)
[2020-06-08] MEDS: FLUoxetine HCL 20 MG CAPSULE PO SCH (07:55)
[2020-06-08] MEDS: MULTIVITAMINS WITH MINERALS, THERAPEUTIC TABLET PO SCH (07:55)
[2020-06-08] MEDS: FAMOTIDINE 20 MG TABLET PO SCH (07:55)
[2020-06-08 08:45] VITALS: BP 113/59
[2020-06-08 19:56] VITALS: BP 104/54
[2020-06-09 04:55] VITALS: BP 130/66
[2020-06-09] MEDS: LORazepam 2 MG TABLET PO PRN ×3 (05:54→16:09)
[2020-06-09 08:12] VITALS: BP 122/72
[2020-06-09] MEDS: FAMOTIDINE 20 MG TABLET PO SCH (08:30)
[2020-06-09] MEDS: MULTIVITAMINS WITH MINERALS, THERAPEUTIC TABLET PO SCH (08:30)
[2020-06-09] MEDS: HALOPERIDOL 5 MG TABLET PO SCH ×2 (08:30→22:33)
[2020-06-09] MEDS: FLUoxetine HCL 20 MG CAPSULE PO SCH (08:30)
[2020-06-09] MEDS: BACITRACIN 28 GM OINTMENT TP SCH (14:36)
[2020-06-09 19:31] VITALS: BP 125/71
[2020-06-10 04:56] VITALS: BP 107/64
[2020-06-10] MEDS: LORazepam 2 MG TABLET PO PRN ×2 (05:35→11:54)
[2020-06-10] MEDS ORDERED: BACITRACIN 28 GM OINTMENT TP PRN (06:30)
[2020-06-10 07:12] VITALS: BP 110/62
[2020-06-10] MEDS: MULTIVITAMINS WITH MINERALS, THERAPEUTIC TABLET PO SCH (08:57)
[2020-06-10] MEDS: HALOPERIDOL 5 MG TABLET PO SCH ×3 (08:57→22:29)
[2020-06-10] MEDS: FLUoxetine HCL 20 MG CAPSULE PO SCH (08:57)
[2020-06-10] MEDS: FAMOTIDINE 20 MG TABLET PO SCH (08:57)
[2020-06-10] MEDS ORDERED: HALOPERIDOL LACTATE 5 MG/ML VIAL ONE (14:18)
[2020-06-10] MEDS ORDERED: LORazepam 2 MG/ML VIAL ONE (14:19)
[2020-06-10] MEDS ORDERED: DiphenhydrAMINE HCL 50 MG/ML VIAL ONE (14:19)
[2020-06-10] MEDS ORDERED: DiphenhydrAMINE HCL 50 MG/ML VIAL IM ONE (14:30)
[2020-06-10] MEDS ORDERED: HALOPERIDOL LACTATE 5 MG/ML VIAL IM ONE (14:30)
[2020-06-10] MEDS ORDERED: LORazepam 2 MG/ML VIAL IM ONE (14:30)
[2020-06-10 22:36] VITALS: BP 117/59
[2020-06-11 02:56] VITALS: BP 115/69
[2020-06-11 07:18] VITALS: BP 112/60
[2020-06-11] MEDS: HALOPERIDOL 5 MG TABLET PO SCH ×2 (09:00→20:03)
[2020-06-11] MEDS: MULTIVITAMINS WITH MINERALS, THERAPEUTIC TABLET PO SCH (09:00)
[2020-06-11] MEDS: FLUoxetine HCL 20 MG CAPSULE PO SCH (09:00)
[2020-06-11] MEDS: FAMOTIDINE 20 MG TABLET PO SCH (09:00)
[2020-06-11] MEDS: LORazepam 2 MG TABLET PO PRN ×2 (11:48→15:41)
[2020-06-11 19:38] VITALS: BP 127/62
[2020-06-11] MEDS: MELATONIN 3 MG TABLET PO PRN (20:03)
[2020-06-11] MEDS ORDERED: ChlorproMAZINE HCL 50 MG/2 ML AMP IM ONE (23:00)
[2020-06-11] MEDS ORDERED: LORazepam 2 MG/ML VIAL IM ONE (23:00)
== END 2020-06-12 01:20 | DRG 885 ==
LOC: EMS 21:31 → 6S 23:00
PROVIDERS: ADMIT Internal Medicine; ATTEND Internal Medicine
DX: F20.9 Schizophrenia, unspecified (principal); E66.9 Obesity, unspecified; F41.0 Panic disorder [episodic paroxysmal anxiety]; F41.9 Anxiety disorder, unspecified; F15.90 Other stimulant use, unspecified, uncomplicated; Z20.822 Contact with and (suspected) exposure to COVID-19; S61.511A Laceration without foreign body of right wrist, initial encounter; F12.10 Cannabis abuse, uncomplicated; Z68.36 Body mass index [BMI] 36.0-36.9, adult; Z91.19 Patient's noncompliance with other medical treatment and regimen; Z76.5 Malingerer [conscious simulation]; Z78.1 Physical restraint status; Y93.89 Activity, other specified; Y92.89 Other specified places as the place of occurrence of the external cause; Y99.8 Other external cause status
CPT/HCPCS: 87426; 99285; G0480; J1200; J1630; J2060; J3230

== ENCOUNTER 2021-06-13 01:06 | Inpatient (IN) | payer OTHER ==
[~2021-06-13] VITALS: Ht 190.5 cm; Wt 167.3 kg
[~2021-06-13 01:06] MED LIST: FLUO-191 PO
[2021-06-13 02:36] LABS: BASOPHILS % (AUTO) 0.7 % (0.0-2.0); EOSINOPHILS % (AUTO) 0.6 % (1.0-6.0); HEMATOCRIT 42.5 % (41-53); HEMOGLOBIN 14.7 g/dL (13.5-17.5); LYMPHOCYTES # (AUTO) 2.1 K/uL (1.0-4.8); LYMPHOCYTES % (AUTO) 22.8 % (22.0-44.0); MEAN CORPUSCULAR HEMOGLOBIN 29.4 pg (26.0-34.0); MEAN CORPUSCULAR HGB CONC 34.7 G/dL (31.0-37.0); MEAN CORPUSCULAR VOLUME 85 fL (80-100); MONOCYTES # (AUTO) 0.6 K/uL (0.1-1.0); MONOCYTES % (AUTO) 6.7 % (2.0-9.0); NEUTROPHILS # (AUTO) 6.3 K/uL (1.8-7.7); NEUTROPHILS % (AUTO) 69.2 % (40.0-70.0); PLATELET COUNT (AUTO) 282 K/uL (150-450); RED CELL DISTRIBUTION WIDTH 13.3 % (11.5-14.5)
[2021-06-13 02:46] LABS: ANION GAP 8 mmol/L (8-16); CALCIUM, TOTAL 9.1 mg/dL (8.8-10.5); CARBON DIOXIDE 27 mmol/L (22-29); CHLORIDE 104 mmol/L (98-107); GLOMERULAR FILTR. RATE CALC > 60 mL/min (>60); GLUCOSE,RANDOM 113 mg/dL (70-110); POTASSIUM 4.3 mmol/L (3.5-5.1); SODIUM SERUM 139 mmol/L (136-145); UREA NITROGEN, BLOOD 9 mg/dL (7-18)
[2021-06-13 02:51] LABS: ALANINE AMINOTRANSFERASE 79 U/L (12-78); ALBUMIN 3.8 g/dL (3.4-5.0); ALKALINE PHOSPHATASE 83 U/L (46-116); ASPARTATE AMINOTRANSFERASE 31 U/L (15-37); BILIRUBIN,TOTAL 0.3 mg/dL (0.1-1.0); TOTAL PROTEIN, SERUM 7.5 g/dL (6.4-8.2)
[2021-06-13 03:18] LABS: COVID AG,FIA SOURCE NASOPHARYNGEAL
[2021-06-13] MEDS ORDERED: 0.9% SODIUM CHLORIDE 10 ML SYRINGE IVP PRN (04:15)
[2021-06-13] MEDS ORDERED: ONDANSETRON HCL 4 MG/2 ML VIAL IVP PRN (04:15)
[2021-06-13] MEDS ORDERED: ACETAMINOPHEN 325 MG TABLET PO PRN ×2 (04:15→05:45)
[2021-06-13 05:12] VITALS: BP 117/61
[2021-06-13] MEDS ORDERED: MAGNESIUM HYDROXIDE SUSPENSION 30 ML UDCUP PO PRN (05:45)
[2021-06-13 10:19] VITALS: BP 108/65
[2021-06-13] MEDS: FLUoxetine HCL 20 MG CAPSULE PO SCH (15:17)
[2021-06-13 19:45] VITALS: BP 122/73
[2021-06-13] MEDS: QUEtiapine FUMARATE 25 MG TABLET PO PRN (21:46)
[2021-06-14 05:03] VITALS: BP 117/78
[2021-06-14 08:32] VITALS: BP 120/69
[2021-06-14] MEDS: FLUoxetine HCL 20 MG CAPSULE PO SCH (09:16)
[2021-06-14 15:19] VITALS: BP 122/61
[2021-06-14 20:15] VITALS: BP 119/71
[2021-06-15] MEDS: QUEtiapine FUMARATE 25 MG TABLET PO PRN ×2 (01:37→19:51)
[2021-06-15 04:38] VITALS: BP 120/65
[2021-06-15 08:01] LABS: AMPHET/METH SCREEN,URINE NEGATIVE (NEGATIVE); BARBITURATE SCREEN, URINE NEGATIVE (NEGATIVE); BENZODIAZEPINES SCREEN,URINE NEGATIVE (NEGATIVE); CANNABINOID SCREEN,URINE POSITIVE (NEGATIVE); COCAINE SCREEN,URINE NEGATIVE (NEGATIVE); METHADONE SCREEN, URINE NEGATIVE (NEGATIVE); OPIATE SCREEN,URINE NEGATIVE (NEGATIVE)
[2021-06-15 08:02] VITALS: BP 139/74
[2021-06-15 08:02] LABS: PHENCYCLIDINE SCREEN,URINE NEGATIVE (NEGATIVE)
[2021-06-15] MEDS: FLUoxetine HCL 20 MG CAPSULE PO SCH (09:17)
[2021-06-15 16:09] VITALS: BP 130/78
[2021-06-15 19:30] VITALS: BP 137/62
[2021-06-16 04:30] VITALS: BP 135/84
[2021-06-16 07:21] VITALS: BP 134/76
[2021-06-16] MEDS: FLUoxetine HCL 20 MG CAPSULE PO SCH (08:33)
[2021-06-16] MEDS: HALOPERIDOL 5 MG TABLET PO SCH ×2 (12:39→20:25)
[2021-06-16 15:52] VITALS: BP 120/70
[2021-06-16 20:27] VITALS: BP 122/74
[2021-06-17 05:36] VITALS: BP 119/74
[2021-06-17 07:38] VITALS: BP 129/79
[2021-06-17] MEDS: HALOPERIDOL 5 MG TABLET PO SCH (09:07)
[2021-06-17] MEDS: FLUoxetine HCL 20 MG CAPSULE PO SCH (09:08)
[2021-06-17] MEDS ORDERED: FLUO-176 PO ×3 (11:20→11:24)
[2021-06-17] MEDS ORDERED: HALO5TAB2 PO (11:26)
== END 2021-06-17 17:10 | DRG 885 ==
LOC: EMS 01:08 → 6S 04:00
PROVIDERS: ADMIT Internal Medicine; ATTEND Internal Medicine
DX: F33.2 Major depressive disorder, recurrent severe without psychotic features (principal); R45.851 Suicidal ideations; Z20.822 Contact with and (suspected) exposure to COVID-19; F41.9 Anxiety disorder, unspecified; F25.1 Schizoaffective disorder, depressive type; F15.90 Other stimulant use, unspecified, uncomplicated; Z79.899 Other long term (current) drug therapy
CPT/HCPCS: 80053; 85025; 99285; G0480